=== PATIENT | female | born 1995 | race Caucasian/White ===

== ENCOUNTER → 2019-02-15 09:16 | Outpatient (CLI) | payer OTHER, SELFPAY ==
--- NOTE | 2019-02-15 09:24 | RAD_ITS ---
STUDY: X-RAY - ABDOMEN/PELVIS REASON FOR EXAM: Female, 23 years old. Right-sided abdominal pain. TECHNIQUE: Single AP view of the abdomen / pelvis. COMPARISON: None. FINDINGS: There is an abundance of fecal material throughout the colon. The visualized liver, spleen and kidneys are grossly normal in size and morphology. Normal soft tissue structures. Normal visualized osseous structures. RAD/Abdomen Single View IMPRESSION: Large amount of fecal material is seen in the colon. Electronically Signed: Herminio Larson, at 9:57 EDT , Service support ,
[2019-02-15 12:28] LABS: Color, Urine Yellow (Yellow); Glucose, Dipstick Normal (Normal); Ketone-Dipstick Negative (Negative); Leukocyte Esterase-Dipstick 100 /ul (Negative); Nitrite-Dipstick Positive (Negative); Occult Blood-Urine 250 /ul (Negative); Protein-Dipstick 100 mg/dl (Negative); Specific Gravity, Urine 1.005 (1.002-1.030); Urine Bilirubin Dipstick Negative (Negative); Urine Clarity Sl. Cloudy (Clear); Urine Urobilinogen Normal (Normal)
== END ==
PROVIDERS: Family Provider Family Medicine; PCP Family Medicine; Referring Provider Family Medicine; Visit Provider Family Medicine
DX: R10.9 Unspecified abdominal pain (principal); R30.0 Dysuria
CPT/HCPCS: 74018; 81002; 87086; 87088; 87186

== ENCOUNTER → 2019-07-01 14:21 | Outpatient (CLI) | payer OTHER, SELFPAY ==
[2019-07-01 11:22] VITALS: BMI 26.5
== END ==
PROVIDERS: Family Provider Family Medicine; PCP Family Medicine; Referring Provider Physician Assistant; Visit Provider Physician Assistant
DX: J02.9 Acute pharyngitis, unspecified (principal)
CPT/HCPCS: 87070

== ENCOUNTER 2023-07-13 06:59 | Inpatient (IN) | payer OTHER, SELFPAY ==
[2023-07-13] VITALS (20 sets, daily range): BP systolic 113–148; BP diastolic 59–87; PULSE 72–168; RESP 16; TEMP 36–37.2; O2SAT 98–100
[2023-07-13 07:07] LABS: ROM Internal Control Test YES-OK TO RESULT pt. (Internal QC)
[2023-07-13 07:08] LABS: ROM Patient Test POSITIVE (Negative); Record Kit Lot#, ROM+ K1409
[2023-07-13] MEDS: Lactated Ringers 1,000 ML 50 ML IV (07:25)
--- NOTE | 2023-07-13 07:26 | PCM.HP.OB ---
HPI - General General Date of Admission: 07/13/23 HPI Narrative RADHA GATES, is a 27 F at 40.6 weeks gestation who presents to triage with spontaneous labor. has been uncomplicated. She was scheduled for induction of labor tomorrow for post dates. Maternal Data Information LEANNA Calculator Estimated Delivery Date Method Current WG Current Estimate 07/07/23 Manual 40w 6d PFSH PFSH Allergy/AdvReac Type Severity Reaction Status Date / Time Penicillins Allergy Mild Unknown Verified 07/01/19 11:23 Social History (Updated 07/01/19 @ 11:52 by Ezio DOTY, PA) Smoking Status: Never smoker History Elective abortions Hx Para 0 Spontaneous abortions Hx # Term Pregnancies Ectopic pregnancies Hx # Pregnancies Multiple births # of living children ROS Eyes Eyes: Denies blurry vision, change in vision or spots in vision ENT HEENT: Denies dizziness or headache(s) Cardiovascular Cardiovascular: Denies abdominal pain, chest pain or dyspnea Respiratory/Chest Respiratory/Chest: Denies cough, dyspnea, shortness of breath at rest or shortness of breath with exertion Gastrointestinal Gastrointestinal: Denies abdominal pain, diarrhea or vomiting Genitourinary Genitourinary: Denies change in urinary stream, difficulty urinating or dysuria Musculoskeletal Musculoskeletal: Reports none Integumentary Integumentary: Denies rash Neurologic Neurologic: Denies dizziness, headache(s), memory loss or weakness Psychiatric Psychiatric: Reports none Vital Signs Vital Signs Vital Signs: 07/13/23 06:45 07/13/23 06:45 07/13/23 06:45 Temperature Temperature Source Temporal Pulse Rate 107 H Blood Pressure 123/85 H BP Systolic 123 BP Diastolic 85 Pulse Ox 07/13/23 06:45 07/13/23 06:45 Temperature 99.0 F Temperature Source Pulse Rate Blood Pressure BP Systolic BP Diastolic Pulse Ox 98 Weight Weight: 175 lb Body Mass Index (BMI) 30.0 Physical Exam Const alert, oriented x3 and no apparent distress General Appearance: cooperative Orientation / Consciousness: awake Exam Limitations: no limitations HEENT normocephalic Head and Scalp: normal to inspection Eyes General Eye: normal appearance of both eyes Neck full ROM and no lymphadenopathy Lymph Lymphatic: no lymphadenopathy noted Chest inspection of chest normal Resp normal respiratory effort, normal air movement and clear to auscultation bilaterally Effort and Inspection: able to speak in complete sentences and symmetric chest movement Cardio regular rate and regular rhythm GI normal to inspection, nondistended, normoactive bowel sounds Manual OB Exam: presentation cephalic Back/Spine normal ROM Extremity full ROM and no calf tenderness Skin no rashes or lesions noted General Skin Exam: no breakdown Neuro oriented x3 and CN's II-XII intact bilaterally Psych mental status grossly normal and thought process normal Labs Labs Labs: Hct 40.5 % (37-47) Hgb 14.0 g/dl (12.0-15.0) GBS negative Assessment & Plan (1) Spontaneous onset of labor: (2) 40 weeks gestation of : PLAN: Plan CE /-1 Admit to labor and delivery Routine labs Start IV and run fluids per orders Start Pitocin IV at 2 mu/min and run per policy Pain medication /epidural when indicated Anticipate Dr. Driver notified and will be assuming management
[2023-07-13 07:47] LABS: Absolute Lymphocyte Count 1.63 X10^3/uL (0.83-4.51); Absolute Neutrophil Count 12.6 X10^3/uL (2.0-7.7); Basophil# 0.06 X10^3/uL; Basophil% 0.4 % (0-1); Eosinophil# 0.07 X10^3/uL; Eosinophils% 0.5 % (0-5); Hematocrit 38.2 % (37-47); Hemoglobin 12.8 g/dL (12.0-15.0); Lymphocyte # 1.63 X10^3/ul (0.83-4.51); Lymphocyte % 10.5 % (19-41); Mean Corp Hgb Conc 33.5 g/dL (32-36); Mean Corpuscular Volume 89.7 fL (81-99); Mean Platelet Vol. 10.3 fl (6.2-12.0); Monocyte# 1.07 X10^3/uL; Monocyte% 6.9 % (0-10); NRBC Flagged by Analyzer 0 % (0-5); Neutrophil # 12.59 X10^3/uL (2.7-7.7); Neutrophil % 81.1 % (47-70); Platelet Count 250 K/mm3 (150-450); RBC Distribution Width CV 14.4 % (11.6-14.6); Red Blood Count 4.26 M/mm3 (4.2-5.4); White Blood Count 15.5 K/mm3 (4.4-11.0)
[2023-07-13 08:45] LABS: Syphilis Antibodies Non-reactive
[2023-07-13] MEDS: Ondansetron 4 MG/2 ML Vial IV ×2 (08:55→12:47)
[2023-07-13] MEDS: Oxytocin 15 Units/NS 250ml 15 UNITS/250 ML IV.SOLN 83 UNITS IV (13:40)
[2023-07-13] MEDS: Lidocaine 1% (20 ml mdv) 20 ML Vial INFILT (13:46)
--- NOTE | 2023-07-13 13:59 | EX.PCM.OBRPT ---
Maternal Data Information LEANNA Calculator Estimated Delivery Date Method Current WG Current Estimate 07/07/23 Manual 40w 6d Final LEANNA: 07/07/23 Gestational age: 40 6/7 Vaginal Delivery Maternal Presentation Maternal Presentation: Active Labor Operative Information Date of Procedure: 07/13/23 Pre-Operative Diagnosis: labor Post-Operative Diagnosis: same Surgery / Procedure Performed: Spontaneous Vaginal Delivery Type of Anesthesia: Local with 1% Lidocaine (15 cc) Special Medications: none Drain: - (none) Estimated Blood Loss: 300 Time of Delivery: 13:36 Findings Description of Procedure: A vigorous male was delivered HAJA over a small second-degree perineal laceration. The remainder the was delivered with maternal pushing and gentle traction only in less than 15 seconds. The Pitocin infusion was initiated for active management of the third stage. The cord was clamped and cut after cord's pulsations ceased. The infant was attended to by the waiting nursing staff. The placenta was delivered spontaneously and intact. The cervix and vagina were intact. The second-degree small vaginal laceration was repaired with 2-0 Vicryl suture in a running standard fashion. Stasis was noted. Sponge and needle counts were correct. A vaginal sweep was completed by me. Presentation: HAJA Amniotic Membrane Rupture Type: Spontaneous Amniotic Fluid Description: Clear Placental Delivery Description: Spontaneous Placenta Disposition: [facility] Cord Vessel Description: 3 Vessels Cord Entanglement: None A Gender: Male ([place]) (1 minute): 8 (5 minute): 9 Delayed Cord Clamping: Yes Post Vaginal Delivery Medications Given After Delivery: IV Pitocin Episiotomy Description: None Laceration: 2nd degree (perineal) Complication Complications: None Admit VTE Documentation VTE Present on Admission: No VTE Pharm Prophylaxis Ordered: No Reason Prophylaxis Not Ordered: Procedure Not Indicated
[2023-07-13] MEDS: Ibuprofen 600 MG Tablet PO (20:26)
[2023-07-13] MEDS: Acetaminophen 500 MG Tablet 1000 MG PO (20:26)
--- NOTE | 2023-07-13 20:38 | PCM.PN.BLA ---
Progress Note Called by nursing staff for a gush of blood and tachycardia. At bedside to evaluate the patient. She is resting comfortably in bed. She states when she got up at bedside she felt lightheaded and ringing in her ears, so she sat back down in bed. Nursing staff noted tachycardia. She denies lightheadedness or dizziness while resting. She denies CP, SOB, palpitations, leg pain. Bleeding has been normal in recovery and now after the gush of blood. No N/V. Some vaginal discomfort. Physical Exam Const alert and no apparent distress Constitutional Narrative: Good color General Appearance: comfortable HEENT normocephalic Resp normal respiratory effort and normal air movement Cardio regular rate and regular rhythm GI soft to palpation, non-tender and non-distended GI Narrative: FF@U Narrative: Soft swelling of bilateral labia minora noted. No external hematoma noted or palpated. On gentle digital exam no vaginal hematoma was palpated. With fundal massage no blood or blood clots expressed. Bleeding scant. Extremity normal to inspection Assessment & Plan Assessment/Plan (1) Vaginal delivery: PLAN: Fundus firm and bleeding scant at this time (2) Perineal laceration: PLAN: No hematoma noted on exam (3) Tachycardia: PLAN: No anemia on admission and no PPH. Check stat CBC and coags given lightheadedness. Will recheck CBC in AM as well. No evidence of DVT/PE based on exam and symptoms. Continue to monitor. Will consider EKG if persistently tachycardic
[2023-07-13 20:43] LABS: Absolute Lymphocyte Count 1.03 X10^3/uL (0.83-4.51); Absolute Neutrophil Count 16.6 X10^3/uL (2.0-7.7); Basophil# 0.03 X10^3/uL; Basophil% 0.2 % (0-1); Eosinophil# 0.47 X10^3/uL; Eosinophils% 2.4 % (0-5); Hematocrit 33.5 % (37-47); Hemoglobin 11.3 g/dL (12.0-15.0); Lymphocyte # 1.03 X10^3/ul (0.83-4.51); Lymphocyte % 5.3 % (19-41); Mean Corp Hgb Conc 33.7 g/dL (32-36); Mean Corpuscular Hgb 30.3 pg (27.0-32.0); Mean Corpuscular Volume 89.8 fL (81-99); Mean Platelet Vol. 10.2 fl (6.2-12.0); Monocyte# 1.31 X10^3/uL; Monocyte% 6.7 % (0-10); NRBC Flagged by Analyzer 0 % (0-5); Neutrophil # 16.63 X10^3/uL (2.7-7.7); Neutrophil % 84.8 % (47-70); Platelet Count 272 K/mm3 (150-450); RBC Distribution Width CV 14.1 % (11.6-14.6); RBC Distribution Width SD 46.1 fl (35.1-43.9); Red Blood Count 3.73 M/mm3 (4.2-5.4); White Blood Count 19.6 K/mm3 (4.4-11.0)
[2023-07-13 20:45] LABS: International Normalized Ratio 1.1; Partial Thromboplast Time 27.6 Seconds (24.1-36.2)
[2023-07-13] MEDS: Lactated Ringers 1,000 ML 999 ML IV (21:25)
[2023-07-13] MEDS: Benzocaine/Lanolin/Aloe Vera 1 SPRAY EACH TOPICAL (22:53)
[2023-07-14] VITALS (10 sets, daily range): BP systolic 117–131; BP diastolic 58–78; PULSE 84–172; RESP 15–17; TEMP 36.8–37.2; O2SAT 78–98
[2023-07-14] MEDS: Ibuprofen 600 MG Tablet PO ×2 (03:44→16:28)
[2023-07-14 04:30] LABS: Hematocrit 29.2 % (37-47); Hemoglobin 10.1 g/dL (12.0-15.0); Mean Corp Hgb Conc 34.6 g/dL (32-36); Mean Corpuscular Hgb 31.2 pg (27.0-32.0); Mean Corpuscular Volume 90.1 fL (81-99); Mean Platelet Vol. 9.9 fl (6.2-12.0); Platelet Count 247 K/mm3 (150-450); RBC Distribution Width CV 14.4 % (11.6-14.6); RBC Distribution Width SD 46.6 fl (35.1-43.9); Red Blood Count 3.24 M/mm3 (4.2-5.4); White Blood Count 16.7 K/mm3 (4.4-11.0)
--- NOTE | 2023-07-14 07:58 | NURSING ---
vital signs in chart are incorrect, pulse ox was off pt at this time. nurse notified
--- NOTE | 2023-07-14 08:23 | PCM.PN.OB ---
Subjective Subjective Pain well controlled. Average lochia. Episode of tachycardia last night. Patient did feel like her heart was racing. Denied any shortness of breath or chest pain. Feels normal now. Does not feel dizzy or lightheaded when up to the bathroom. States she has had episodes previously where her heart rate would go up into the 140 range. Objective Data Objective Data Vital Signs: Vital Signs Temp Pulse Resp BP Pulse Ox O2 Del Method 98.6 F 172 H 16 125/58 H 78 Room Air 07/14/23 07:53 07/14/23 07:56 07/14/23 07:53 07/14/23 07:56 07/14/23 07:56 07/14/23 07:53 Oxygen Delivery Method Room Air Weight: 79.379 kg Body Mass Index (BMI) 30.0 Intake & Output: Intake and Output for Last 24 Hours 07/12/23 07/13/23 07/14/23 23:59 23:59 23:59 Intake Total 2091.25 / 2091.25 Output Total 700 / 700 Balance 1391.25 / 1391.25 Lab / Micro Data 07/14/23 04:22 Labs: Laboratory Results - last 24 hr 07/13/23 07:25: Syphilis Total Ab Non-reactive, Blood Type O POSITIVE, Antibody Screen NEGATIVE 07/13/23 20:23: WBC 19.6 H, RBC 3.73 L, Hgb 11.3 L, Hct 33.5 L, MCV 89.8, MCH 30.3, MCHC 33.7, RDW Std Deviation 46.1 H, RDW Coeff of Harlan 14.1, Plt Count 272, MPV 10.2, Immature Gran % (Auto) 0.600, Neut % (Auto) 84.8 H, Lymph % (Auto) 5.3 L, [place] % (Auto) 6.7, Eos % (Auto) 2.4, Baso % (Auto) 0.2, Absolute Neuts (auto) 16.6 H, Absolute Lymphs (auto) 1.03, Nucleated RBC % 0, PT 14.0, INR 1.1, APTT 27.6 07/14/23 04:22: WBC 16.7 H, RBC 3.24 L, Hgb 10.1 L, Hct 29.2 L, MCV 90.1, MCH 31.2, MCHC 34.6, RDW Std Deviation 46.6 H, RDW Coeff of [place] 14.4, Plt Count 247, MPV 9.9 Physical Exam Const alert and no apparent distress Narrative: Fundus firm, below umbilicus. Assessment & Plan (1) (spontaneous vaginal delivery): PLAN: day #1 status post vaginal delivery. Episode of tachycardia. If recurs, check EKG. Patient and are doing well. Working on breast-feeding. Patient would like to be discharged home later today if she and the are doing well and okay with pediatrics.
--- NOTE | 2023-07-14 10:30 | NURSING ---
this nurse agrees with charting of Aranza, student nurse.
== END 2023-07-14 19:05 | disposition home or self-care (01) | DRG 807 ==
LOC: WPOUT 07:11 → WP 07:12
PROVIDERS: Advanced Practice Midwife; Obstetrics & Gynecology; Admitting Provider Obstetrics & Gynecology; PCP Family Medicine; Referring Provider Obstetrics & Gynecology; Visit Provider Obstetrics & Gynecology
DX: O70.1 Second degree perineal laceration during delivery (principal); Z37.0 Single live birth; O48.0 Post-term pregnancy; Z3A.40 40 weeks gestation of pregnancy; O99.893 Other specified diseases and conditions complicating puerperium; R00.0 Tachycardia, unspecified
CPT/HCPCS: 59050; 84112; 85025; 85027; 85610; 85730; 86780; 86850; 86900; 86901; 99221; J7120; G0378; J2405